=== PATIENT | male | born 1940 | race Caucasian/White ===

== ENCOUNTER 2022-07-12 13:23 | Emergency (ER) | payer MEDICARE, OTHER ==
[~2022-07-12] VITALS: Ht 180.3 cm; Wt 87.5 kg
[2022-07-12 16:00] VITALS: BP 109/74
[2022-07-12] MEDS: ACETAMINOPHEN 325 MG TAB PO ONE (16:04)
[2022-07-12] MEDS ORDERED: CIPR1SUS8 OT (18:39)
== END 2022-07-12 19:05 | disposition home or self-care (01) ==
LOC: ER 13:23
DX: H60.92 Unspecified otitis externa, left ear (principal); I10 Essential (primary) hypertension